=== PATIENT | male | born 1975 | race Caucasian/White ===

== ENCOUNTER 2016-12-18 12:18 | Observation (INO) | payer OTHER ==
--- NOTE | 2016-12-18 13:26 | ER Document Report ---
ED Cardiac - General Chief Complaint: Chest Pain Stated Complaint: CHEST PAIN Mode of Arrival: Medic Information source: Patient, Relative, Emergency Med Personnel TRAVEL OUTSIDE OF THE [place] IN LAST 30 DAYS: No - HPI Patient complains to provider of: Chest pain Use of: denies: Alcohol, Amphetamines, Bath salts, Caffeine, Cocaine, Decongestants Was the onset of pain: Sudden When did pain begin: 30 MIN. PRIOR TO E.D. ARRIVAL Is the pain a: New problem Chest pain location: Other - R. PECTORAL, RADIATING ACROSS ANT. CHEST Quality of pain: Tightness, Other - FULLNESS, "LIKE A BUBBLE" Chest pain radiation location: None - ACROSS TO LEFT PECTORAL Severity now: Mild Severity at worst: Moderate Chest pain precipitating factors: LEAVING GYM AFTER WORK-OUT Cardiac risk factors: + Family history. denies: Diabetes, Hypertension, Smoker , Dyslipidemia, Hx CHF, Hx GA Positive cardiac history: No Associated symptoms: denies: Diaphoresis, Lightheaded, Nausea/vomiting, Shortness of breath Exacerbated by: Denies Relieved by: Nothing - NO RELIEF WITH NTG PER EMS Similar symptoms previously: No Recently seen / treated by doctor: No - Related Data Allergies/Adverse Reactions: Neuromuscular Blockers, Steroidal [Steroidal Neuromuscular Blockers] Allergy ( Verified 02/05/12 19:47) Past Medical History - General Information source: Patient - Social History Smoking Status: Never Smoker Cigarette use (# per day): No Chew tobacco use (# tins/day): No Frequency of alcohol use: Rare Drug Abuse: None Lives with: Spouse/Significant other Family History: CAD - MOTHER Patient has suicidal ideation: No Patient has homicidal ideation: No - Past Medical History Cardiac Medical History: Reports: Hx Hypertension Pulmonary Medical History: Reports: None EENT Medical History: Reports: None Neurological Medical History: Reports: None Endocrine Medical History: Reports: None Renal/ Medical History: Reports: None Malignancy Medical History: Reports None GI Medical History: Reports: None Musculoskeltal Medical History: Reports None Psychiatric Medical History: Reports: None Past Surgical History: Reports: Hx Abdominal Surgery - Umbilical Hernia repair - Immunizations Hx Diphtheria, Pertussis, Tetanus Vaccination: Yes Review of Systems - Review of Systems Constitutional: No symptoms reported EENT: No symptoms reported Cardiovascular: See HPI Respiratory: No symptoms reported Gastrointestinal: No symptoms reported Genitourinary: No symptoms reported Musculoskeletal: No symptoms reported Skin: No symptoms reported Neurological/Psychological: No symptoms reported Physical Exam - Vital signs Vitals: Pulse Ox 93 12/18/16 12:23 Interpretation: Normal - General General appearance: Appears well, Alert In distress: None - HEENT Head: Normocephalic Eyes: Normal Conjunctiva: Normal Ears: Normal Nasal: Normal Mouth/Lips: Normal Mucous membranes: Normal Pharynx: Normal Neck: Normal - Respiratory Respiratory status: No respiratory distress Breath sounds: Normal - Cardiovascular Rhythm: Regular Heart sounds: Normal auscultation Murmur: No - Abdominal Inspection: Normal Distension: No distension Bowel sounds: Normal - Back Back: Normal - Extremities General upper extremity: Normal inspection General lower extremity: Normal inspection - Neurological Neuro grossly intact: Yes Cognition: Normal Orientation: AAOx4 - Psychological Associated symptoms: Normal affect, Normal mood - Skin Skin Temperature: Warm Skin Moisture: Dry Skin Color: Normal Skin Turgor: Elastic Course - Vital Signs Vital signs: Temp Pulse Resp BP Pulse Ox 98.3 F 22 H 131/75 H 100 12/18/16 12:25 12/18/16 16:21 12/18/16 16:21 12/18/16 16:21 - Laboratory Result Diagrams: 12/18/16 12:45 12/18/16 12:45 Laboratory results interpreted by me: 12/18/16 12/18/16 12/18/16 12:45 12:45 14:55 BUN 22 H ALT 74 H Creatine Kinase 989 H Urine Ascorbic Acid 40 H - Diagnostic Test Radiology reviewed: Image reviewed, Reports reviewed - EKG Interpretation by Me EKG shows normal: Sinus rhythm, Blanco, Intervals, QRS Complexes, ST-T Waves - SLIGHT INF ST ABNLS, PROB. DUE TO LVH. Rate: Normal Rhythm: NSR Discharge - Discharge Clinical Impression: Chest pain Qualifiers: Chest pain type: unspecified Qualified Code(s): R07.9 - Chest pain, unspecified Condition: Good Disposition: ADMITTED OBSERVATION Admitting Provider: Hospitalist Unit Admitted: Telemetry Referrals: MICHA FAYE DO [Primary Care Provider] - Follow up as needed
[2016-12-18] MEDS ORDERED: NITROGLYCERIN 0.4 MG/TAB 25 TAB/BOTTLE SL ONE ×2 (13:31→22:00)
[2016-12-18 14:02] LABS: ABSOLUTE EOSINOPHILS # (AUTO) 0.1 10^3/uL (0.0-0.6); ABSOLUTE LYMPHOCYTES (AUTO) 1.8 10^3/uL (0.5-4.7); ABSOLUTE MONOCYTES (AUTO) 0.6 10^3/uL (0.1-1.4); ABSOLUTE NEUT (AUTO) 6.5 10^3/uL (1.7-8.2); BASOPHILS % (AUTO) 0.5 % (0-2); EOSINOPHILS % (AUTO) 1.6 % (0-6); HEMATOCRIT 44.1 % (37.9-51.0); HEMOGLOBIN 14.4 g/dL (13.5-17.0); HGB HCT DIFFERENCE -0.9; LYMPHOCYTES % (AUTO) 20.3 % (13-45); MEAN CORPUSCULAR HEMOGLOBIN 29.9 pg (27.0-33.4); MEAN CORPUSCULAR HGB CONC 32.6 g/dL (32.0-36.0); MEAN CORPUSCULAR VOLUME 92 fl (80-97); MONOCYTES % (AUTO) 6.3 % (3-13); RED CELL DISTRIBUTION WIDTH 12.9 % (11.5-14.0); SEGMENTED NEUTROPHILS % (AUTO) 71.3 % (42-78); WHITE BLOOD COUNT 9.1 10^3/uL (4.0-10.5)
[2016-12-18 14:04] LABS: PROTHROMBIN TIME 14.4 SEC (11.4-15.4)
[2016-12-18] MEDS ORDERED: NITROGLYCERIN 2% OINTMENT 1 GM PACKET ONE ×2 (14:07→23:28)
[2016-12-18 14:09] LABS: ALANINE AMINOTRANSFERASE 74 U/L (21-72); ALKALINE PHOSPHATASE 64 U/L (38-126); ANION GAP 14 (5-19); ASPARTATE AMINO TRANSFERASE 53 U/L (17-59); BILIRUBIN,TOTAL 0.7 mg/dL (0.2-1.3); BLOOD UREA NITROGEN 22 mg/dL (7-20); CALCIUM 9.4 mg/dL (8.4-10.2); CARBON DIOXIDE 24 mmol/L (22-30); CHLORIDE 106 mmol/L (98-107); GLUCOSE 102 mg/dL (75-110); POTASSIUM 4.4 mmol/L (3.6-5.0); SODIUM 144.2 mmol/L (137-145); TOTAL PROTEIN 6.9 g/dL (6.3-8.2)
--- NOTE | 2016-12-18 15:13 | EKG REPORT ---
SEVERITY:- NORMAL ECG - SINUS RHYTHM : Confirmed by: Kim Horner MD 18-Dec-2016 15:12:32
--- NOTE | 2016-12-18 15:13 | EKG REPORT ---
SEVERITY:- NORMAL ECG - SINUS RHYTHM ST ELEV, PROBABLE NORMAL EARLY REPOL PATTERN : Confirmed by: Kim Horner MD 18-Dec-2016 15:12:40
[2016-12-18 15:37] LABS: AMORPHOUS SEDIMENT,URINE TRACE /HPF; APPEARANCE,URINE SLIGHTLY-CLOUDY; BILIRUBIN,URINE NEGATIVE (NEGATIVE); GLUCOSE, URINE NEGATIVE (NEGATIVE); KETONES,URINE NEGATIVE (NEGATIVE); LEUKOCYTE ESTERASE,URINE NEGATIVE (NEGATIVE); NITRITE,URINE NEGATIVE (NEGATIVE); PROTEIN,URINE NEGATIVE (NEGATIVE); URINE SPECIFIC GRAVITY 1.023; UROBILINOGEN,URINE NEGATIVE mg/dL (<2.0)
[2016-12-18] MEDS ORDERED: NITROGLYCERIN 2% OINTMENT 1 GM PACKET TP ONE (15:58)
[2016-12-18] MEDS ORDERED: ACETAMINOPHEN 325 MG TABLET PO ONE (16:14)
[2016-12-18] MEDS ORDERED: NORMAL SALINE 1000 ML 1,000 ML IV PRN (17:40)
[2016-12-18] MEDS ORDERED: ACETAMINOPHEN 650 MG SUPP.RECT PR PRN (17:40)
[2016-12-18] MEDS ORDERED: ONDANSETRON HCL INJ/PF 4 MG/2 ML SDV IV PRN (17:40)
[2016-12-18] MEDS ORDERED: TRAMADOL HCL 50 MG TABLET PO PRN (17:48)
[2016-12-18] MEDS ORDERED: DOCUSATE SODIUM 100 MG CAPSULE PO SCH (18:00)
--- NOTE | 2016-12-18 18:02 | PDOC H&P ---
History of Present Illness Admission Date/PCP: MICHA FAYE DO Patient complains of: Chest pain History of Present Illness: ELLIOT RECINOS is a 41 year old male with history of hypertension, presents to the hospital with chest pain while having worked out. The patient is body building. He has been doing bench press with heavy weights for a while. He runs on a treadmill and reached a heart rate in the 160s without any discomfort. However today he was not even doing those but he was just exercising his legs he started to develop right-sided and left-sided chest discomfort characterized as tightness with cold clammy sweats, and lightheadedness. There is no syncopal episode nor near syncopal episode. There is no shortness of breath. Patient reports that when he tries to take a deep breath it hurts in the chest. He feels like if he could only burp his symptoms would go away. There was no nausea or vomiting. No palpitation. The ambulance was called and the patient was given nitroglycerin and aspirin and the discomfort started to go away. By the time the patient is in the emergency room it is likewise starting to go away and it is now located in the sternum. Patient was given Nitropaste but causes some headache. Chest pain however is old. Patient was then referred for admission Past Medical History Cardiac Medical History: Reports: Hypertension Pulmonary Medical History: Reports: None EENT Medical History: Reports: None Neurological Medical History: Reports: None Endocrine Medical History: Reports: None Renal/ Medical History: Reports: None Malignancy Medical History: Reports: None GI Medical History: Reports: None Musculoskeltal Medical History: Reports: None Psychiatric Medical History: Reports: None Past Surgical History Past Surgical History: Reports: Herniorrhaphy Social History Information Source: Patient Lives with: Spouse/Significant other Smoking Status: Never Smoker Frequency of Alcohol Use: Rare Hx Recreational Drug Use: No Drugs: None Family History Family History: CAD - MOTHER Parental Family History Reviewed: Yes Children Family History Reviewed: Yes Sibling(s) Family History Reviewed.: Yes Medication/Allergy Home Medications: Amlodipine Besylate/Benazepril [Lotrel 10-20 Mg Capsule] 1 each PO 02/05/12 Allergies/Adverse Reactions: Neuromuscular Blockers, Steroidal [Steroidal Neuromuscular Blockers] Allergy ( Verified 02/05/12 19:47) Review of Systems Constitutional: ABSENT: chills, fever(s), headache(s), night sweats, weakness, weight gain, weight loss Eyes: ABSENT: visual disturbances Ears: ABSENT: hearing changes Nose, Mouth, and Throat: ABSENT: mouth pain, sore throat Cardiovascular: PRESENT: chest pain. ABSENT: dyspnea on exertion, edema, orthropnea, palpitations Respiratory: ABSENT: cough, hemoptysis, sputum Gastrointestinal: PRESENT: bloating. ABSENT: abdominal pain, constipation, diarrhea, hematemesis, hematochezia, melena, nausea, vomiting Genitourinary: ABSENT: dysuria, hematuria, nocturia Musculoskeletal: ABSENT: joint swelling Integumentary: ABSENT: pruritus, rash, wounds Neurological: PRESENT: dizziness. ABSENT: abnormal gait, abnormal speech, confusion, focal weakness, syncope Psychiatric: ABSENT: anxiety, depression, homidical ideation, suicidal ideation Endocrine: ABSENT: cold intolerance, heat intolerance, polydipsia, polyuria Hematologic/Lymphatic: ABSENT: easy bleeding, easy bruising Physical Exam Vital Signs: Temp Pulse Resp BP Pulse Ox 98.3 F 22 H 131/75 H 100 12/18/16 12:25 12/18/16 16:21 12/18/16 16:21 12/18/16 16:21 Intake & Output 12/17/16 12/18/16 12/19/16 06:59 06:59 06:59 Intake Total 500 Balance 500 Weight 125.5 kg General appearance: PRESENT: no acute distress, cooperative, other - Overweight Head exam: PRESENT: atraumatic, normocephalic Eye exam: PRESENT: conjunctiva pink, EOMI, PERRLA. ABSENT: scleral icterus Ear exam: PRESENT: normal external ear exam. ABSENT: drainage Mouth exam: PRESENT: moist, neck supple, tongue midline Neck exam: ABSENT: carotid bruit, JVD, lymphadenopathy, thyromegaly Respiratory exam: PRESENT: clear to auscultation concepcion, unlabored. ABSENT: rales , rhonchi, wheezes Cardiovascular exam: PRESENT: RRR, +S1, +S2. ABSENT: diastolic murmur, gallop, rubs, systolic murmur Pulses: PRESENT: normal dorsalis pedis pul Vascular exam: PRESENT: normal capillary refill GI/Abdominal exam: PRESENT: normal bowel sounds, soft. ABSENT: distended, guarding, mass, organolmegaly, rebound, tenderness Rectal exam: PRESENT: deferred Extremities exam: PRESENT: full ROM. ABSENT: calf tenderness, clubbing, pedal edema Neurological exam: PRESENT: alert, awake, oriented to person, oriented to place , oriented to time, oriented to situation Psychiatric exam: PRESENT: appropriate affect, normal mood. ABSENT: homicidal ideation, suicidal ideation Skin exam: PRESENT: dry, intact, warm, other - Tattoos on the upper extremity. ABSENT: cyanosis, rash Results Laboratory Results: 12/18/16 12:45 12/18/16 12:45 12/18/16 12/18/16 12/18/16 12:45 12:45 14:55 WBC 9.1 RBC 4.80 Hgb 14.4 Hct 44.1 MCV 92 MCH 29.9 MCHC 32.6 RDW 12.9 Plt Count 173 Seg Neutrophils % 71.3 Lymphocytes % 20.3 Monocytes % 6.3 Eosinophils % 1.6 Basophils % 0.5 Absolute Neutrophils 6.5 Absolute Lymphocytes 1.8 Absolute Monocytes 0.6 Absolute Eosinophils 0.1 Absolute Basophils 0.0 Sodium 144.2 Potassium 4.4 Chloride 106 Carbon Dioxide 24 Anion Gap 14 BUN 22 H Creatinine 0.90 Est GFR ( Amer) > 60 Est GFR (Non-Af Amer) > 60 Glucose 102 Calcium 9.4 Total Bilirubin 0.7 AST 53 ALT 74 H Alkaline Phosphatase 64 Total Protein 6.9 Albumin 4.0 Urine Color YELLOW Urine Appearance SLIGHTLY-CLOUDY Urine pH 7.0 Ur Specific [place] 1.023 Urine Protein NEGATIVE Urine Glucose (UA) NEGATIVE Urine Ketones NEGATIVE Urine Blood NEGATIVE Urine Nitrite NEGATIVE Ur Leukocyte Esterase NEGATIVE Urine WBC (Auto) 1 12/18/16 12/18/16 12/18/16 12:45 12:45 12:45 Creatine Kinase 989 H CK-MB (CK-2) 4.29 Troponin I 0.017 Impressions: Chest X-Ray 12/18/16 13:25 IMPRESSION: NO ACUTE RADIOGRAPHIC FINDING IN THE CHEST. Assessment & Plan - Diagnosis (1) Chest pain Qualifiers: Chest pain type: unspecified Qualified Code(s): R07.9 - Chest pain, unspecified Is this a current diagnosis for this admission?: Yes (2) Elevated CPK Is this a current diagnosis for this admission?: Yes (3) Hypertension Qualifiers: Hypertension type: essential hypertension Qualified Code(s): I10 - Essential (primary) hypertension Is this a current diagnosis for this admission?: Yes - Time Time Spent: 30 to 50 Minutes Within: within 24 hours - Plan Summary Plan Summary: The patient will be admitted to observation. We will hydrate the patient with normal saline. We will monitor CPK and troponins. In the meantime we will obtain CTA of the chest to rule out aortic dissection. I will put the patient on baby aspirin, supplemental oxygen and DVT prophylaxis with Lovenox. I will continue the patient's antihypertensive medication. Further testing depends on the initial evaluation as outlined above. Patient and family wants stress test done on an outpatient basis.
[2016-12-18] MEDS ORDERED: NITROGLYCERIN 0.4 MG/TAB 25 TAB/BOTTLE ONE (21:37)
[2016-12-18 21:50] LABS: CREATINE KINASE MB 54.1 ng/mL (<4.55)
[2016-12-18 21:55] LABS: TROPONIN I 13.7 ng/mL
[2016-12-18] MEDS ORDERED: ENOXAPARIN SODIUM INJ 150 MG/1 ML DISP.SYRIN SUBCUT SCH (22:00)
[2016-12-18] MEDS ORDERED: ASPIRIN 81 MG TABLET, CHEWABLE PO ONE ×2 (22:01→22:15)
[2016-12-18] MEDS ORDERED: ASPIRIN 81 MG TABLET, CHEWABLE ONE (22:03)
[2016-12-18] MEDS ORDERED: METOPROLOL TARTRATE 25 MG TABLET PO ONE (22:11)
[2016-12-18] MEDS ORDERED: ATORVASTATIN CALCIUM 80 MG TABLET PO ONE (22:13)
[2016-12-18] MEDS ORDERED: CLOPIDOGREL BISULFATE 300 MG TABLET PO ONE (22:42)
[2016-12-18] MEDS ORDERED: DEXTROSE 5%-1/2 NORMAL SALINE 1,000 ML IV PRN (22:43)
[2016-12-18 23:12] LABS: URINE BARBITURATES SCREEN NEGATIVE; URINE METHADONE SCREEN NEGATIVE; URINE OPIATES LOW NEGATIVE; URINE PHENCYCLIDINE SCREEN NEGATIVE
[2016-12-19] MEDS ORDERED: AMIODARONE HCL 150 MG in DEXTROSE 5%-WATER 100 ML IV ONE (00:01)
[2016-12-19] MEDS ORDERED: DEXTROSE 5%-WATER 500 ML with AMIODARONE HCL 900 MG IV PRN ×2 (00:01)
[2016-12-19 00:36] VITALS: BP 139/76
--- NOTE | 2016-12-19 01:05 | PDOC TRANSFER SUMMARY ---
General Admission Date/PCP: 12/18/16 17:41 MICHA FAYE DO Resuscitation Status: Full Code - Transfer Diagnosis (1) Anticoagulated Is this a current diagnosis for this admission?: Yes (2) NSTEMI (non-ST elevated myocardial infarction) Is this a current diagnosis for this admission?: Yes (3) V tach Is this a current diagnosis for this admission?: Yes - Transfer Medications Home Medications: Amlodipine Besylate [Norvasc 5 mg Tablet] 5 mg PO DAILY 12/18/16 Transfer Medications: Current Medications Acetaminophen (Tylenol 650 Mg Supp) 650 mg WA Q4HP PRN PRN Reason: fever Stop: 01/17/17 17:39 Amlodipine Besylate (Norvasc 10 Mg Tablet) 10 mg PO DAILY [facility] Stop: 01/18/17 09:59 Aspirin (Aspirin 81 Mg Chewable Tablet) 81 mg PO DAILY [facility] Stop: 01/18/17 09:59 Clopidogrel Bisulfate (Plavix 75 Mg Tablet) 75 mg PO DAILY [facility] Stop: 01/18/17 09:59 Docusate Sodium (Colace 100 Mg Capsule) 100 mg PO BID [facility] Stop: 01/17/17 17:59 Last Admin: 12/18/16 23:04 Dose: Not Given Enoxaparin Sodium (Lovenox Inj 150 Mg/1 Ml Disp.Syrin) 130 mg SUBCUT Q12 [facility] Stop: 01/17/17 21:59 Last Admin: 12/18/16 23:02 Dose: 130 mg Dextrose/Sodium Chloride (D5-1/2ns 1000 Ml Iv Soln) 1,000 mls @ 125 mls/hr IV CONTINUOUS PRN PRN Reason: THIS MED IS NOT "PRN" Stop: 01/17/17 22:42 Amiodarone HCl 150 mg/ (Dextrose) 103 mls @ 600 mls/hr IV NOW ONE Stop: 12/19/16 00:11 Amiodarone HCl 900 mg/ (Dextrose) 518 mls @ 0 mls/hr IV CONTINUOUS PRN; Protocol; Per Protocol PRN Reason: THIS MED IS NOT "PRN" Stop: 12/22/16 00:00 Magnesium Sulfate/Dextrose (Magnesium Sulfate Rtu-D5w 1 Gm/100 Ml Premix) 100 mls @ 100 mls/hr IV Q1H [facility] Stop: 12/19/16 02:29 Lansoprazole (Prevacid 30 Mg Odt Tablet) 30 mg PO BID@0600,1700 [facility] Stop: 01/18/17 05:59 Metoprolol Tartrate (Lopressor 25 Mg Tablet) 25 mg PO Q12 [facility] Stop: 01/18/17 09:59 Nitroglycerin (Nitrol 2% Ointment 1gm Packet) 1 gm TP Q6 [facility] Stop: 01/18/17 22:21 Ondansetron HCl (Zofran Inj/Pf 4 Mg/2 Ml Sdv) 4 mg IV Q4HP PRN Stop: 01/17/17 17:39 Sodium Chloride (Saline Flush 2.5 Ml Monoject Prefil Syrin) 2.5 ml IV Q8 [facility] Stop: 01/17/17 21:59 Last Admin: 12/18/16 23:04 Dose: 2.5 ml Tramadol HCl (Ultram 50 Mg Tablet) 50 mg PO Q4H PRN Stop: 12/25/16 17:59 Last Admin: 12/18/16 23:04 Dose: Not Given - Allergies Allergies/Adverse Reactions: steroids Adverse Reaction (Uncoded 12/19/16 01:23) Hospital Course Hospital Course: 41-year-old male admitted for chest pain. Underlying hypertension, but basically no other major health problems. Quite physically active; patient is a regular weightlifter. Please refer to transcribed history and physical for more complete discussion of same. I was contacted the evening of the by his floor nurse due to elevated troponin. No chest pain at that time. Resting quietly. Stat repeat labs were drawn, revealing cardiac enzymes further elevated. EKG showed no acute worrisome changes, in particular no evidence of STEMI. Transfer to Tertiary center recommended. and, I believe, parents are present at his side, with his approval. All agreed with need for transfer. 10:05 PM on the , I discussed patient with [facility] transfer center. At 10:35 PM, patient was discussed with Dr. Prasad, on-call director international. Patient graciously accepted at that time. No beds available , but he was put on a waiting list, with plans for transport morning of the . Dr. Prasad reviewed and agreed with our efforts so far including systemic Lovenox, oral beta preston, atorvastatin, and aspirin. She also recommended Plavix loading. Systemic anticoagulation recommended to patient. Patient understands the risks of systemic anti-coagulation to include but not be limited to internal bleeding , which can take the form of GI tract and/or intracranial hemorrhage, the latter of which can result in or stroke with permanent paralysis. Patient has no absolute contraindication to systemic anticoagulation. Above discussed in lay person's terms. Patient agrees to undergo systemic anticoagulation. Patient had had a 20 beat run of V. tach followed by an 8 beat run at 8:45 PM. Basically asymptomatic during these episodes. I did discuss this with both Dr. Prasad and earlier with Dr. Tolliver, our pole frame construction worker email marketing processor. No further specific medication was felt needed. 11:30 PM on the , patient had several somewhat prolonged runs of V. tach, with associated mild chest pressure that time. I discussed the patient once again with Dr. Tolliver, our pole frame construction worker email marketing processor. Decision was made to proceed with amiodarone loading and drip. Patient was subsequently transferred to the intensive care unit. 12:23 AM on the , patient was discussed by phone with Dr. Merrill, pole frame construction worker email marketing processor at [facility]. She agreed with our treatment so far. She also recommended 2 g magnesium sulfate rider; this has been ordered. No other specific treatment warranted at this time according to Dr. Merrill, including use of such medications such as Reopro. Vital signs have remained stable. We are awaiting final discussion between air transport crew and ICU nursing staff. Patient will be transported by air. Patient, and patient's family have been updated multiple times with patient's current status and our plans. They agree and are most appreciative of our efforts. He remains stable for transport. Intermittent episodes of ventricular tachycardia, despite being on amiodarone drip after undergoing loading dose, and despite ongoing magnesium sulfate infusion. Vital signs have remained stable. At 1:20 AM I discussed the above episodes of ventricular tachycardia with Dr. Merrill, pole frame construction worker email marketing processor at [facility]. She stated that other than increasing the magnesium sulfate infusion rate to enable a gram infusion over 30 minutes instead of one hour, no further recommendation. Air crew is currently loading patient on stretcher for planned transport to [facility]. Again, remains hemodynamically stable for transport. 70 minutes critical care time in patient evaluation and management spent on , with an additional 60 minutes critical care time spent on 12/19/2016. This included direct multiple patient evaluations, multiple telephone discussions with [facility] and their pole frame construction worker physicians, along with our pole frame construction worker email marketing processor Dr. Tolliver,, multiple discussions with patient and family, multiple discussions with nursing staff, and entering of multiple orders into the electronic health record. Physical Exam Vital Signs: Temp Pulse Resp BP Pulse Ox 98.1 F 82 17 139/76 H 98 12/18/16 23:30 12/18/16 23:30 12/18/16 23:30 12/18/16 23:30 12/18/16 23:30 Intake & Output 12/17/16 12/18/16 12/19/16 00:59 00:59 00:59 Weight 129.9 kg Results Laboratory Results: 12/18/16 12/18/16 12/18/16 19:22 19:22 21:21 Creatine Kinase 1129 H 1320 H CK-MB (CK-2) Troponin I 3.810 12/18/16 21:21 Creatine Kinase CK-MB (CK-2) 54.10 H Troponin I 13.700 Impressions: Chest/Abdomen CTA 12/18/16 00:00 IMPRESSION: NORMAL CTA OF THE CHEST. NO PULMONARY EMBOLI. Chest X-Ray 12/18/16 13:25 IMPRESSION: NO ACUTE RADIOGRAPHIC FINDING IN THE CHEST.
[2016-12-19] MEDS: MAGNESIUM SULFATE/D5W 1 GM/100 ML RTUPB IV SCH ×2 (01:21→01:23)
[2016-12-19 01:26] LABS: ANION GAP 9 (5-19); BLOOD UREA NITROGEN 14 mg/dL (7-20); CALCIUM 9.2 mg/dL (8.4-10.2); CARBON DIOXIDE 24 mmol/L (22-30); CHLORIDE 109 mmol/L (98-107); CREATINE KINASE 1569 U/L (55-170); CREATININE RESULT 0.86 mg/dL (0.52-1.25); GLUCOSE 126 mg/dL (75-110); MAGNESIUM 2.2 mg/dL (1.6-2.3); POTASSIUM 3.7 mmol/L (3.6-5.0); SODIUM 141.7 mmol/L (137-145)
[2016-12-19] MEDS ORDERED: LANSOPRAZOLE 30 MG TAB.RAP.DR PO SCH (06:00)
[2016-12-19] MEDS ORDERED: ENOXAPARIN SODIUM INJ 40 MG/0.4 ML DISP.SYRIN SUBCUT SCH (08:00)
--- NOTE | 2016-12-19 09:35 | EKG REPORT ---
SEVERITY:- ABNORMAL ECG - SINUS RHYTHM : Confirmed by: Kim Horner MD 19-Dec-2016 09:34:56
[2016-12-19] MEDS ORDERED: METOPROLOL TARTRATE 25 MG TABLET PO SCH (10:00)
[2016-12-19] MEDS ORDERED: CLOPIDOGREL BISULFATE 75 MG TABLET PO SCH (10:00)
[2016-12-19] MEDS ORDERED: ASPIRIN 81 MG TABLET, CHEWABLE PO SCH (10:00)
[2016-12-19] MEDS ORDERED: AMLODIPINE BESYLATE 10 MG TABLET PO SCH ×2 (10:00)
[2016-12-19] MEDS ORDERED: NITROGLYCERIN 2% OINTMENT 1 GM PACKET TP SCH (22:22)
== END 2016-12-19 01:40 | disposition short-term general hospital (02) ==
LOC: ER 12:18 → EH 17:41 → 4N 20:21 → EH 12-19 00:20
DX: I21.4 Non-ST elevation (NSTEMI) myocardial infarction (principal); I10 Essential (primary) hypertension; I47.2 Ventricular tachycardia; Z79.01 Long term (current) use of anticoagulants; Z82.49 Family history of ischemic heart disease and other diseases of the circulatory system
CPT/HCPCS: 93005 ×2; 99285; 36415; 82553; 82550 ×2; 83735; 84443; 85025; 85610; 85730; 80048; 80053; 81001; 84484 ×2; 80307; 71010; 71275; 93010; G0378 ×2; J3490 ×3; J3475; J7060; J7030; J0282

== ENCOUNTER → 2020-09-12 | Outpatient (CLI) | payer BC ==
--- NOTE | 2020-09-12 14:10 | RADIOLOGY REPORT (SQ) ---
EXAM DESCRIPTION: CHEST PA/LATERAL IMAGES COMPLETED DATE/TIME: 09/12/2020 2:01 pm REASON FOR STUDY: PRE-OP COMPARISON: None. EXAM PARAMETERS: NUMBER OF VIEWS: two views TECHNIQUE: Digital Frontal and Lateral radiographic views of the chest acquired. RADIATION DOSE: NA LIMITATIONS: none FINDINGS: LUNGS AND PLEURA: No opacities, masses or pneumothorax. No pleural effusion. MEDIASTINUM AND HILAR STRUCTURES: No masses or contour abnormalities. HEART AND VASCULAR STRUCTURES: Heart normal size. No evidence for failure. BONES: No acute findings. HARDWARE: None in the chest. OTHER: No other significant finding. IMPRESSION: NO SIGNIFICANT RADIOGRAPHIC FINDING IN THE CHEST. TECHNICAL DOCUMENTATION: JOB ID: [id number] 2010 [employer]- All Rights Reserved Reading location - IP/workstation name: [email or web address]
[2020-09-12 14:25] LABS: ABSOLUTE EOSINOPHILS # (AUTO) 0.2 10^3/uL (0.0-0.6); ABSOLUTE LYMPHOCYTES (AUTO) 2.2 10^3/uL (0.5-4.7); ABSOLUTE MONOCYTES (AUTO) 0.5 10^3/uL (0.1-1.4); ABSOLUTE NEUT (AUTO) 3.7 10^3/uL (1.7-8.2); BASOPHILS % (AUTO) 0.6 % (0-2); EOSINOPHILS % (AUTO) 3.1 % (0-6); HEMATOCRIT 47.3 % (37.9-51.0); HEMOGLOBIN 16.5 g/dL (13.5-17.0); LYMPHOCYTES % (AUTO) 32.7 % (13-45); MEAN CORPUSCULAR HEMOGLOBIN 31.4 pg (27.0-33.4); MEAN CORPUSCULAR HGB CONC 34.9 g/dL (32.0-36.0); MEAN CORPUSCULAR VOLUME 90 fl (80-97); MONOCYTES % (AUTO) 8.1 % (3-13); PLATELET COUNT 196 10^3/uL (150-450); RED BLOOD COUNT 5.25 10^6/uL (4.35-5.55); RED CELL DISTRIBUTION WIDTH 13.1 % (11.5-14.0); SEGMENTED NEUTROPHILS % (AUTO) 55.5 % (42-78); TOTAL CELLS COUNTED % (AUTO) 100 %; WHITE BLOOD COUNT 6.6 10^3/uL (4.0-10.5)
[2020-09-12 14:41] LABS: ANION GAP 11 (5-19); BLOOD UREA NITROGEN 17 mg/dL (7-20); CALCIUM 9.7 mg/dL (8.4-10.2); CARBON DIOXIDE 26 mmol/L (22-30); CHLORIDE 100 mmol/L (98-107); GLUCOSE 106 mg/dL (75-110); POTASSIUM 4.4 mmol/L (3.6-5.0)
--- NOTE | 2020-09-12 15:58 | EKG REPORT ---
SEVERITY:- ABNORMAL ECG - SINUS RHYTHM INFERIOR INFARCT, AGE INDETERMINATE : Confirmed by: Gabo Campoverde MD 12-Sep-2020 15:57:14
== END ==
LOC: OD 13:26
PROVIDERS: ATTEND Orthopaedic Surgery
DX: Z01.810 Encounter for preprocedural cardiovascular examination (principal); Z01.811 Encounter for preprocedural respiratory examination; Z01.812 Encounter for preprocedural laboratory examination; S83.511A Sprain of anterior cruciate ligament of right knee, initial encounter; X58.XXXA Exposure to other specified factors, initial encounter; M25.561 Pain in right knee; I25.810 Atherosclerosis of coronary artery bypass graft(s) without angina pectoris; I10 Essential (primary) hypertension; G47.30 Sleep apnea, unspecified
CPT/HCPCS: 36415; 71046; 80048; 85025; 93005; 93010